=== PATIENT | female | born 1945 | race Two or more races ===

== ENCOUNTER 2020-01-31 08:13 | Outpatient (CLI) | payer OTHER | END 2020-01-31 08:18 | disposition home or self-care (01) | LOC: MRI 08:13 | PROVIDERS: ATTEND Neuromusculoskeletal Medicine & OMM | DX: G25.0 Essential tremor (principal); G31.89 Other specified degenerative diseases of nervous system | CPT/HCPCS: 70551 ==

== ENCOUNTER 2020-09-16 18:39 | Emergency (ER) | payer OTHER ==
[~2020-09-16] VITALS: Ht 142.2 cm; Wt 37.2 kg
[2020-09-16] MEDS ORDERED: PRAVASTATIN SOD20 MG (18:42)
[2020-09-16] MEDS ORDERED: EVISTA60 MG (18:42)
[2020-09-16] MEDS ORDERED: PENTOXIFYLLINE400 MG (18:43)
[2020-09-16] MEDS ORDERED: VASOTEC5 MG (18:43)
[2020-09-16] MEDS ORDERED: MYSOLINE50 MG (18:44)
[2020-09-16] MEDS ORDERED: FORTAMET500 MG (18:44)
[2020-09-16] MEDS ORDERED: HYDROCHLOROTHIA25 MG (18:45)
== END 2020-09-16 22:39 | disposition home or self-care (01) ==
LOC: ER 18:39
DX: I67.89 Other cerebrovascular disease (principal); R20.0 Anesthesia of skin; M62.81 Muscle weakness (generalized); R42 Dizziness and giddiness